=== PATIENT | female | born 1980 | race Hispanic/Latino ===

== ENCOUNTER 2022-06-27 15:48 | Emergency (ER) | payer SELFPAY ==
--- NOTE | 2022-06-27 16:51 | RAD REPORT ---
EXAM DESCRIPTION: RAD - Chest Pa And Lat (2 Views) - 06/27/2022 4:45 pm CLINICAL HISTORY: CONGESTION COMPARISON: No comparisonsNo comparisons FINDINGS: Lines: None. Lungs: No evidence of edema or pneumonia. Pleural: No significant pleural effusions or pneumothorax. Cardiac: The heart size is within normal limits. Mediastinum: Within normal limits. Bones: No acute fractures. Other: Bilateral breast prostheses. IMPRESSION: No acute cardiopulmonary disease.
--- NOTE | 2022-06-27 17:10 | EDPHYS ---
Physician Documentation [facility] Name: Jenny Miranda Age: 42 yrs Sex: Female : 1980 Arrival Date: 06/27/2022 Time: 15:50 Bed Waiting Private MD: Chivo Meyer HPI: 06/27 16:08 This 42 yrs old Female presents to ER via Ambulatory with complaints of jl9 feeling short of breath x1 week, positive COVID test 7 days ago. Patient states she feels she should be better by now. . 16:08 Onset: The symptoms/episode began/occurred 1 week(s) ago. Associated signs and jl9 symptoms: Pertinent positives: cough. Modifying factors: The patient symptoms are alleviated by nothing, the patient symptoms are aggravated by nothing. The patient has not recently seen a physician. 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 - Social history:: Smoking status: Patient denies any tobacco usage or history of. ROS: 16:09 Constitutional: Negative for fever, chills, and weight loss, Eyes: Negative for injury, jl9 pain, redness, and discharge, ENT: Negative for injury, pain, and discharge, Neck: Negative for injury, pain, and swelling, Cardiovascular: Negative for chest pain, palpitations, and edema. 16:09 Abdomen/GI: Negative for abdominal pain, nausea, vomiting, diarrhea, and constipation, Back: Negative for injury and pain, : Negative for injury, bleeding, discharge, and swelling, MS/Extremity: Negative for injury and deformity, Skin: Negative for injury, rash, and discoloration. 16:09 Psych: Negative for depression, anxiety, suicide ideation, homicidal ideation, and hallucinations, Allergy/Immunology: Negative for hives, rash, and allergies, Endocrine: Negative for neck swelling, polydipsia, polyuria, polyphagia, and marked weight changes, Hematologic/Lymphatic: Negative for swollen nodes, abnormal bleeding, and unusual bruising. 16:09 Respiratory: Positive for cough. 16:09 Neuro: Positive for weakness. Exam: 16:09 Constitutional: This is a well developed, well nourished patient who is awake, alert, jl9 and in no acute distress. Head/Face: Normocephalic, atraumatic. Eyes: Pupils equal round and reactive to light, extra-ocular motions intact. Lids and lashes normal. Conjunctiva and sclera are non-icteric and not injected. Cornea within normal limits. Periorbital areas with no swelling, redness, or edema. ENT: Mucous membranes moist. Neck: Trachea midline, no thyromegaly or masses palpated, and no cervical lymphadenopathy. Supple, full range of motion without nuchal rigidity, or vertebral point tenderness. No Meningismus. Chest/axilla: Normal chest wall appearance and motion. Nontender with no deformity. No lesions are appreciated. Cardiovascular: Regular rate and rhythm with a normal S1 and S2. No gallops, murmurs, or rubs. Normal PMI, no JVD. No pulse deficits. Respiratory: Lungs have equal breath sounds bilaterally, clear to auscultation and percussion. No rales, rhonchi or wheezes noted. No increased work of breathing, no retractions or nasal flaring. Abdomen/GI: Soft, non-tender, with normal bowel sounds. No distension or tympany. No guarding or rebound. No evidence of tenderness throughout. Skin: Warm, dry with normal turgor. Normal color with no rashes, no lesions, and no evidence of cellulitis. MS/ Extremity: Pulses equal, no cyanosis. Neurovascular intact. Full, normal range of motion. Neuro: Awake and alert, GCS 15, oriented to person, place, time, and situation. Cranial nerves II-XII grossly intact. Motor strength 5/5 in all extremities. Sensory grossly intact. Cerebellar exam normal. Normal gait. Psych: Awake, alert, with orientation to person, place and time. Behavior, mood, and affect are within normal limits. Vital Signs: 15:57 BP 116 / 80; Pulse 85; Resp 17; Temp 97.8; Pulse Ox 99% ; Pain 7/10; ll1 17:25 BP 120 / 82; Pulse 78; Resp 18; Pulse Ox 100% on R/A; kr3 MDM: 16:06 Patient medically screened. 16:09 Data reviewed: vital signs, nurses notes. jl9 17:09 Counseling: I had a detailed discussion with the patient and/or guardian regarding: the jl9 historical points, exam findings, and any diagnostic results supporting the discharge/admit diagnosis, radiology results, the need for outpatient follow up, to return to the emergency department if symptoms worsen or persist or if there are any questions or concerns that arise at home. 06/27 16:07 Order name: XRAY Chest Pa And Lat (2 Views); Complete Time: 17:09 jl9 Administered Medications: No medications were administered Disposition Summary: 06/27/22 17:10 Discharge Ordered Location: Home jl9 Condition: Stable jl9 Diagnosis - Cough jl9 Followup: jl9 - With: Private Physician - When: 1 - 2 days - Reason: Recheck today's complaints, Continuance of care, Re-evaluation by your physician Discharge Instructions: - Discharge Summary Sheet jl9 - Cough, Adult, [id number] jl9 - COVID-19 jl9 Forms: - Medication Reconciliation Form jl9 - Thank You Letter jl9 - Antibiotic Education jl9 - Prescription Opioid Use jl9 - Work release form kr3 Prescriptions: - albuterol sulfate 90 mcg/actuation Inhalation HFA aerosol inhaler - inhale 2 puff by INHALATION route every 6 hours As needed; 18 gram; Refills: 0, jl9 Product Selection Permitted - aehxgiapthtdso-gbduxlxftxte-HR 4-10-20 mg/5 mL Oral liquid - take 5 milliliter by ORAL route every 4-6 hours As needed as needed; 100 jl9 milliliter; Refills: 0, Product Selection Permitted Signatures: Dispatcher [employer] Damon Pérez RN RN ll1 Je Ibrahim jl9
--- NOTE | 2022-06-27 17:10 | ER ---
Nurse's Notes [facility] Name: Jenny Miranda Age: 42 yrs Sex: Female : 1980 Arrival Date: 06/27/2022 Time: 15:50 Bed Waiting Private MD: Diagnosis: Cough Presentation: 06/27 15:57 Chief complaint: Patient states: 7 days COVID positive, has SOB still. Coronavirus ll1 screen: Vaccine status: Patient reports receiving the 2nd dose of the covid vaccine. Client denies travel out of the [place] in the last 14 days. difficulty breathing, fatigue, fever, headache, muscle pain, shortness of breath, Client presents with at least one sign or symptom that may indicate coronavirus-19. Standard/surgical mask placed on the client. Ebola Screen: Patient denies travel to an Ebola-affected area in the 21 days before illness onset. Initial Sepsis Screen: Does the patient meet any 2 criteria? No. Patient's initial sepsis screen is negative. Does the patient have a suspected source of infection? Yes: Productive cough/pneumonia. Risk Assessment: Do you want to hurt yourself or someone else? Patient reports no desire to harm self or others. Onset of symptoms was June 20, 2022. 15:57 Method Of Arrival: Ambulatory ll1 15:57 Acuity: RYAN 4 ll1 Triage Assessment: 15:58 General: Appears in no apparent distress. Behavior is calm, cooperative, appropriate ll1 for age. Pain: Complains of pain in back Pain currently is 7 out of 10 on a pain scale. Quality of pain is described as aching. Respiratory: Reports shortness of breath Onset: The symptoms/episode began/occurred 1 week, the patient has mild shortness of breath. 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 - Social history:: Smoking status: Patient denies any tobacco usage or history of. Screenin:06 Abuse screen: Denies threats or abuse. Nutritional screening: No deficits noted. ll1 Tuberculosis screening: No symptoms or risk factors identified. Fall Risk Total Cano Fall Scale indicates No Risk (0-24 pts). Assessment: 16:06 Cardiovascular: Rhythm is regular. Respiratory: Airway is patent Respiratory effort is ll1 even, unlabored, Breath sounds are clear bilaterally. 17:00 Reassessment: No changes from previously documented assessment. Patient and/or family kr3 updated on plan of care and expected duration. Pain level reassessed. Vital Signs: 15:57 BP 116 / 80; Pulse 85; Resp 17; Temp 97.8; Pulse Ox 99% ; Pain 7/10; ll1 17:25 BP 120 / 82; Pulse 78; Resp 18; Pulse Ox 100% on R/A; kr3 ED Course: 15:50 Patient arrived in ED. mr 15:57 Arm band placed on. ll1 15:58 Triage completed. ll1 16:06 Je Ibrahim is PHCP. jl9 16:06 Chivo Daley MD is Attending Physician. jl9 16:07 Patient has correct armband on for positive identification. Bed in low position. Call ll1 light in reach. Side rails up X 1. Cardiac monitoring not applicable on this patient. 16:07 No provider procedures requiring assistance completed. ll1 16:47 XRAY Chest Pa And Lat (2 Views) In Process Unspecified. EDMS 17:27 Patient did not have IV access during this emergency room visit. kr3 Administered Medications: No medications were administered Medication: 16:06 VIS not applicable for this client. ll1 Outcome: 17:10 Discharge ordered by . gabby 17:26 Discharged to home ambulatory. kr3 17:26 Condition: stable 17:26 Discharge instructions given to patient, family, Instructed on discharge instructions, follow up and referral plans. medication usage, Demonstrated understanding of instructions, follow-up care, medications, Prescriptions given X 2. 17:27 Patient left the ED. kr3 Signatures: Dispatcher [employer] [facility] Ramona Tate Damon Belcher RN RN ll1 Je Ibrahim jl9 Micheline Webb RN RN kr3
[2022-06-27 17:39] VITALS: TEMP 97.8
[2022-06-27 17:46] VITALS: BP 120/82; O2SAT 100
== END 2022-06-27 17:27 | disposition home or self-care (01) ==
LOC: ER 15:48
DX: R05.9 Cough, unspecified (principal); R06.02 Shortness of breath
CPT/HCPCS: 71046; 99283